=== PATIENT | male | born 1940 | race Caucasian/White ===

== ENCOUNTER 2016-12-01 21:05 | Inpatient (IN) | payer MEDICARE, OTHER ==
[~2016-12-01] VITALS: Ht 152.4 cm; Wt 45.1 kg
[~2016-12-01 21:05] MED LIST: ACET325 PO; BISA10R PR; DONE5TAB14 PO; NEUR100C PO; PRIL40CA PO; RISP.5 PO
[2016-12-01] MEDS ORDERED: SODIUM CHLOR 0.9% 1000 ML INJ 1,000 ML IV ONE (21:11)
[2016-12-01] MEDS ORDERED: AZITHROMYCIN INJ 500 MG in SODIUM CHLOR 0.9% 250 ML INJ 250 ML IV STA (21:11)
[2016-12-01] MEDS ORDERED: CEFEPIME INJ 2,000 MG in SODIUM CHLORIDE 0.9% INJ 100 ML IV STA (21:11)
[2016-12-01] MEDS ORDERED: ACETAMINOPHEN 650 MG SUPP RECTAL ONE (21:15)
[2016-12-01 21:48] VITALS: BP 130/72; PULSE 117; RESP 30; TEMP 101; O2SAT 95
[2016-12-01 22:19] LABS: AUTOMATED NEUTROPHIL # 20.6 TH/MM3 (1.8-7.7); BASOPHIL % 0.2 % (0.0-2.0); HEMATOCRIT 38.8 % (39.0-51.0); HEMO FLAGS DIFF FINAL; LYMPH % 2.2 % (9.0-44.0); LYMPHOCYTE # 0.5 TH/MM3 (1.0-4.8); MEAN CELL VOLUME 94.7 FL (80.0-100.0); MEAN CORPUSCULAR HEMOGLOBIN 31.9 PG (27.0-34.0); MEAN CORPUSCULAR HGB CONC 33.7 % (32.0-36.0); MONO % 8.2 % (0.0-8.0); NEUT % 89.4 % (16.0-70.0); PLATELET COUNT 300 TH/MM3 (150-450); RED CELL DISTRIBUTION WIDTH 14.7 % (11.6-17.2); WHITE BLOOD COUNT 23.1 TH/MM3 (4.0-11.0)
[2016-12-01 22:25] VITALS: BP 130/72; PULSE 123; RESP 26; O2SAT 97
--- NOTE | 2016-12-01 22:34 | RADRPT ---
EXAM DATE/TIME: 12/01/2016 21:26 [place] COMPARISON: CHEST SINGLE AP, July 10, 2015, 8:25. INDICATIONS : Fever. MEDICAL HISTORY : Alzheimers. Dementia. SURGICAL HISTORY : None. ENCOUNTER: Initial ACUITY: 1 day PAIN SCORE: Non-responsive. LOCATION: Bilateral chest FINDINGS: A single view of the chest demonstrates minimal basilar density probably atelectasis. No effusion. No pneumothorax. No dense consolidation. Tortuous aorta. CONCLUSION: 1. Minimal basilar atelectasis. No dense consolidation or effusion. Chris Friedman MD on December 01, 2016 at 22:31 Board Certified Radiologist. This report was verified electronically.
[2016-12-01 22:38] LABS: ALT (GPT) 12 U/L (12-78); ANION GAP 8 MEQ/L (5-15); AST (GOT) 11 U/L (15-37); BICARBONATE 26.9 MEQ/L (21.0-32.0); BLOOD UREA NITROGEN 13 MG/DL (7-18); CHLORIDE 108 MEQ/L (98-107); GLOMERULAR FILTRATION RATE 82 ML/MIN (>89); MAGNESIUM 1.8 MG/DL (1.5-2.5); POTASSIUM 4.1 MEQ/L (3.5-5.1); SODIUM (NA) 143 MEQ/L (136-145)
[2016-12-01] MEDS ORDERED: ACET1CAP18 PO (22:39)
[2016-12-01 22:40] LABS: BLOOD, URINE SMALL (NEG); GLUCOSE,URINE NEG (NEG); KETONE, URINE 10 mg/dL (NEG); MUCUS URINE FEW /lpf (OCC); NITRITE,URINE NEG (NEG); PH, URINE 6.5 (5.0-8.5); URINE COLOR YELLOW (YELLW/STRAW)
[2016-12-01] MEDS ORDERED: DONE10TA7 PO (22:40)
[2016-12-01] MEDS ORDERED: BISC10SU RECTAL (22:40)
[2016-12-01] MEDS ORDERED: RISP0.5T20 PO (22:40)
[2016-12-01] MEDS ORDERED: TRAZ50TA12 PO (22:40)
[2016-12-01] MEDS ORDERED: PRIL20CA9 PO (22:40)
[2016-12-01] MEDS ORDERED: ALBU.5I NEB (22:40)
[2016-12-01] MEDS ORDERED: GABA100C4 PO (22:40)
[2016-12-01 22:42] LABS: ALKALINE PHOSPHATASE 41 U/L (45-117); TOTAL BILIRUBIN ADULT 0.4 MG/DL (0.2-1.0)
[2016-12-01 22:47] LABS: COMMENT (UR) CATH-CULT NOT IND; CULTURE IF INDICATED CATH CULTURE NOT IND
[2016-12-01 22:55] LABS: APTT (PATIENT) 32.2 SEC (24.3-30.1); INTERNATIONAL NORMALIZED RATIO 1.2 RATIO; PROTHROMBIN TIME - PATIENT 12.9 SEC (9.8-11.6)
[2016-12-02] VITALS (9 sets, daily range): BP systolic 109–117; BP diastolic 60–75; PULSE 80–112; RESP 18–22; TEMP 95.7–99.2; O2SAT 91–96
[2016-12-02 00:09] LABS: LACTIC ACID GHOST NOT REPORTABLE
--- NOTE | 2016-12-02 00:15 | PD ---
HPI Chief Complaint: Fever Time Seen by Provider: 21:10 Travel History International Travel<30 days: No Contact w/Intl Traveler<30days: No Traveled to known affect area: No History of Present Illness HPI Patient is a 76 year old male who comes in with fever and AMS. Per EMS the staff at the group home called because he was no longer speaking with them. He was noted to be febrile. He had pneumonia recently, but had a chest XR that showed it had cleared up. Patient has history of cerebral Palsy, but usually is able to converse. He cannot provide history due to his clinical condition. He is not answering questions currently. PFSH Past Medical History Alzheimer's Disease: Yes Arthritis: Yes Anxiety: Yes Dementia: Yes Diminished Hearing: Yes GERD: Yes Medical other: Yes (contracture, cerebral palsy) Psychiatric: Yes (PSYCHOTIC DEMENTIA) Tetanus Vaccination: Unknown Past Surgical History Oral Surgery: Yes (teeth extracted) Social History Alcohol Use: No Tobacco Use: No Substance Use: No Allergies-Medications (Allergen,Severity, Reaction): Coded Allergies: No Known Allergies (Unverified , 07/03/15) Reported Meds & Prescriptions Reported Meds & Active Scripts Active Reported Trazodone (Trazodone HCl) 50 Mg Tab 50 Mg PO HS Risperdal (Risperidone) 0.5 Mg Tab 0.5 Mg PO Q12HR Prilosec (Omeprazole) 20 Mg Cap 20 Mg PO DAILY Gabapentin 100 Mg Cap 100 Mg PO BID Donepezil 10 Mg Tab 10 Mg PO HS Biscolax Supp (Bisacodyl) 10 Mg Supp 10 Mg RECTAL DAILY PRN Albuterol Neb (Albuterol Sulfate) 2.5 Mg/0.5 Ml Neb 2.5 Mg NEB Q6HR NEB PRN Note: The Albuterol Sulfate Inhalation Solution is concentrated and must be diluted. Read complete instructions carefully before using. Tylenol (Acetaminophen) 325 Mg Cap 650 Mg PO Q4HR PRN Review of Systems ROS Limitations: Clinical Condition Physical Exam Narrative GENERAL: awake and alert, not speaking SKIN: Warm and dry. HEAD: Atraumatic. Normocephalic. EYES: Pupils equal and round. No scleral icterus. ENT: Mucous membranes pink and moist. NECK: Trachea midline. No JVD. CARDIOVASCULAR: tachycardia RESPIRATORY: No accessory muscle use. Clear to auscultation. Breath sounds equal bilaterally. GASTROINTESTINAL: Abdomen soft, non-tender, nondistended. MUSCULOSKELETAL: Extremities contracted, without clubbing, cyanosis, or edema. No obvious deformities. NEUROLOGICAL: Awake and alert, not speaking. No obvious cranial nerve deficits. Data Data Last Documented VS Vital Signs Date Time Temp Pulse Resp B/P Pulse Ox O2 Delivery O2 Flow Rate FiO2 12/01/16 22:25 123 26 130/72 97 Nasal Cannula 2 12/01/16 21:48 101.0 Orders Electrocardiogram (12/01/16 21:11) Complete Blood Count With Diff (12/01/16 21:11) Comprehensive Metabolic Panel (12/01/16 21:11) Prothrombin Time / Inr (Pt) (12/01/16 21:11) Act Partial Throm Time (Ptt) (12/01/16 21:11) Lactic Acid Sepsis Protocol (12/01/16 21:11) Magnesium (Mg) (12/01/16 21:11) Phosphorus (Po4) (12/01/16 21:11) Troponin I (12/01/16 21:11) Urinalysis - C+S If Indicated (12/01/16 21:11) Ua Includes Microscopic (12/01/16 21:11) Blood Culture (12/01/16 21:11) Chest, Single Ap (12/01/16 21:11) Blood Glucose (12/01/16 21:11) Ecg Monitoring (12/01/16 21:11) Iv Access Insert/Monitor (12/01/16 21:11) Oximetry (12/01/16 21:11) Oxygen Administration (12/01/16 21:11) Cefepime Inj (Maxipime Inj) (12/01/16 21:11) Azithromycin Inj (Zithromax Inj) (12/01/16 21:11) Acetaminophen Supp (Tylenol Supp) (12/01/16 21:15) Sodium Chlor 0.9% 1000 Ml Inj (Ns 1000 M (12/01/16 21:11) Cath For Specimen (12/01/16 21:11) Influenzae A/B Antigen (12/01/16 21:45) Admit To Inpatient (12/02/16 ) Vital Signs (Adult) Q4H (12/02/16 00:30) Activity Bed Rest (12/02/16 00:30) Foot Orthopedist / Telemetry .CONTINUOUS (12/02/16 00:30) Diet Npo (12/02/16 Breakfast) Sodium Chlor 0.9% 1000 Ml Inj (Ns 1000 M (12/02/16 00:30) Sodium Chloride 0.9% Flush (Ns Flush) (12/02/16 00:30) Sodium Chloride 0.9% Flush (Ns Flush) (12/02/16 09:00) Acetaminophen (Tylenol) (12/02/16 00:30) Ondansetron Inj (Zofran Inj) (12/02/16 00:30) Bisacodyl Supp (Dulcolax Supp) (12/02/16 00:30) Magnesium Hydroxide Liq (Milk Of Magnesi (12/02/16 00:30) Sennosides (Senokot) (12/02/16 00:30) Comprehensive Metabolic Panel (12/03/16 06:00) Complete Blood Count With Diff (12/03/16 06:00) Resp Oxygen Renato C Titrat 1-4 L (12/02/16 ) Heparin Inj (Heparin Inj) (12/02/16 09:00) Naloxone Inj (Narcan Inj) (12/02/16 00:30) Inpatient Certification (12/02/16 ) Cefepime Inj (Maxipime Inj) (12/02/16 06:00) Azithromycin Inj (Zithromax Inj) (12/02/16 22:00) Admit Order (Ed Use Only) (12/02/16 ) Labs Laboratory Tests Test 12/01/16 12/01/16 21:25 21:30 White Blood Count 23.1 TH/MM3 Red Blood Count 4.10 MIL/MM3 Hemoglobin 13.1 GM/DL Hematocrit 38.8 % Mean Corpuscular Volume 94.7 FL Mean Corpuscular Hemoglobin 31.9 PG Mean Corpuscular Hemoglobin 33.7 % Concent Red Cell Distribution Width 14.7 % Platelet Count 300 TH/MM3 Mean Platelet Volume 8.4 FL Neutrophils (%) (Auto) 89.4 % Lymphocytes (%) (Auto) 2.2 % Monocytes (%) (Auto) 8.2 % Eosinophils (%) (Auto) 0.0 % Basophils (%) (Auto) 0.2 % Neutrophils # (Auto) 20.6 TH/MM3 Lymphocytes # (Auto) 0.5 TH/MM3 Monocytes # (Auto) 1.9 TH/MM3 Eosinophils # (Auto) 0.0 TH/MM3 Basophils # (Auto) 0.0 TH/MM3 CBC Comment DIFF FINAL Differential Comment Prothrombin Time 12.9 SEC Prothromb Time International 1.2 RATIO Ratio Activated Partial 32.2 SEC Thromboplast Time Sodium Level 143 MEQ/L Potassium Level 4.1 MEQ/L Chloride Level 108 MEQ/L Carbon Dioxide Level 26.9 MEQ/L Anion Gap 8 MEQ/L Blood Urea Nitrogen 13 MG/DL Creatinine 0.90 MG/DL Estimat Glomerular Filtration 82 ML/MIN Rate Random Glucose 125 MG/DL Calcium Level 8.0 MG/DL Phosphorus Level 2.3 MG/DL Magnesium Level 1.8 MG/DL Total Bilirubin 0.4 MG/DL Aspartate Amino Transf 11 U/L (AST/SGOT) Alanine Aminotransferase 12 U/L (ALT/SGPT) Alkaline Phosphatase 41 U/L Troponin I LESS THAN 0.02 NG/ML Total Protein 6.3 GM/DL Albumin 2.7 GM/DL Urine Color YELLOW Urine Turbidity HAZY Urine pH 6.5 Urine Specific [place] 1.018 Urine Protein 30 mg/dL Urine Glucose (UA) NEG mg/dL Urine Ketones 10 mg/dL Urine Occult Blood SMALL Urine Nitrite NEG Urine Bilirubin NEG Urine Urobilinogen LESS THAN 2.0 MG/DL Urine Leukocyte Esterase LARGE Urine RBC 10 /hpf Urine WBC 109 /hpf Urine WBC Clumps RARE Urine Mucus FEW /lpf Microscopic Urinalysis Comment CATH-CULT NOT IND Lactic Acid Level 2.1 mmol/L MDM Medical Decision Making Medical Screen Exam Complete: Yes Emergency Medical Condition: Yes Medical Record Reviewed: Yes Interpretation(s) ECG shows sinus tachycardia Differential Diagnosis sepsis vs pneumonia vs UTI vs CVA Narrative Course Patient is a 76 year old male BIBEMS for AMS with fever. Patient febrile and tachycardic on arrival. IV established, labs sent. Patient given IVF, 2L Given Cefepime and Azithromycin prophylactically for possible pneumonia Labs show elevated WBC count. CXR negative for pneumonia Urinalysis positive for UTI. Patient's BP remained within normal limits. Admitted for further management. Patient's sister arrived and said he seemed to be responding appropriately to her. She says he is very hard of hearing. Diagnosis Primary Impression: Sepsis Qualified Code: A41.9 - Sepsis, due to unspecified organism Additional Impression: UTI (urinary tract infection) Qualified Code: N30.00 - Acute cystitis without hematuria Admitting Information Admitting Physician Requests: it Britany Shaw MD Dec 02, 2016 00:15
[2016-12-02] MEDS ORDERED: MAGNESIUM HYDROXIDE SUSP 30 ML CUP PO PRN (00:30)
[2016-12-02] MEDS ORDERED: NALOXONE HCL 0.4 MG/ML AMP IV PRN (00:30)
[2016-12-02] MEDS ORDERED: ACETAMINOPHEN 325 MG TAB PO PRN ×2 (00:30→10:00)
[2016-12-02] MEDS ORDERED: ONDANSETRON HCL 4 MG/2 ML VIAL IVP PRN (00:30)
[2016-12-02] MEDS ORDERED: SENNOSIDES 8.6 MG TAB PO PRN (00:30)
[2016-12-02] MEDS ORDERED: BISACODYL 10 MG SUPP PR PRN (00:30)
[2016-12-02] MEDS ORDERED: SODIUM CHLORIDE 0.9% FLUSH 5 ML FLUSH FLUSH PRN (00:30)
[2016-12-02] MEDS: FAMOTIDINE 20 MG/2 ML VIAL IV PUSH SCH ×2 (03:42→13:12)
[2016-12-02] MEDS: SODIUM CHLOR 0.9% 1000 ML INJ 1,000 ML IV SCH (05:27)
[2016-12-02] MEDS: CEFEPIME INJ 1,000 MG in SODIUM CHLORIDE 0.9% INJ 100 ML IV SCH ×2 (05:37→13:12)
--- NOTE | 2016-12-02 06:53 | MH ---
cc: CHANDAN FOX DATE OF ADMISSION: 12/02/[address] Darius Olmedo CHIEF COMPLAINT: Altered mental status. HISTORY OF PRESENT ILLNESS: The patient is a 76 year-old male from a local nursing facility. The patient has some underlying history of Alzheimer's dementia and cerebral palsy. The patient is essentially obtunded at this time and cannot provide any meaningful history. The history is obtained from the ER staff. The patient apparently is more responsive at baseline and became less responsive today. He was sent to the emergency room and was found to have early sepsis and urinary tract infection. He is being admitted for further care. MEDICATIONS ON ADMISSION: Noted in the chart. ALLERGIES: NONE. PAST MEDICAL HISTORY: Obtained from the chart includes: 1. Dementia. 2. Anxiety. 3. Hard of hearing. 4. GERD. 5. Cerebral palsy. PAST SURGICAL HISTORY: Oral surgery. SOCIAL HISTORY: No recorded history of alcohol, tobacco or drug use. Currently resides in a nursing facility. FAMILY HISTORY: Noncontributory. Unobtainable at this time. REVIEW OF SYSTEMS: Unobtainable. PHYSICAL EXAMINATION: VITAL SIGNS: Temperature 101 rectally. Heart rate on the monitor, currently is 89 to 100. Heart rate was recorded at 117 when he first came in, respiratory rate 30. Last respirations noted to be at 26, blood pressure 130/72. O2 sat is 97% on two liters nasal cannula. GENERAL: This is a 76 year-old male lying on his left side, sleeping in no acute distress. HEENT: No jaundice. Moist mucous membranes. NECK: Supple. CARDIOVASCULAR: Regular rate and rhythm. RESPIRATORY: Scattered coarse breath sounds are heard bilaterally. GASTROINTESTINAL: Bowel sounds are present. ABDOMEN: Not distended. There is no guarding or rebound. GENITOURINARY: Bladder does not appear to be distended. No CVA tenderness. MUSCULOSKELETAL: No edema. LOWER EXTREMITIES: Appear to be contracted. NEUROLOGIC: The patient does respond to moderate tactile stimulus with some withdrawing, otherwise neuro exam is essentially unobtainable. INVESTIGATIONS: Chest x-ray, minimal basilar atelectasis. No dense consolidation or effusion. INR is 1.2. White count is 23, hemoglobin 13.1, hematocrit 38.8, platelet count 300. Neutrophils are 89.4. Lactic acid is 2.1. BUN is 13, creatinine 0.9, glucose 125, calcium 8, phosphorus 2.3. Troponin was negative. Albumin 2.7, total protein 6.3. Urinalysis is consistent with urinary tract infection. IMPRESSION: 1. Sepsis on admission. 2. Urinary tract infection. 3. Protein calorie malnutrition. 4. Dementia. 5. Cerebral palsy. 6. Underlying dementia. 7. Hard of hearing. DISCUSSION: The patient meets inpatient criteria due to the severity of his sepsis and urinary tract infection, without which he would be at a high risk for multisystem organ failure. He would be at a high-risk of developing other complications as well. During his hospital stay he will be monitored on telemetry. He has received two liters of fluid and a third liter is ordered. Will repeat lactic acid. He has been covered with broad-spectrum antibiotics. The ER physician did report that he has recently been treated for pneumonia. He still has some coarse breath sounds. Will keep him n.p.o. until he is seen by speech therapy. We will provide DVT and GI prophylaxis. Follow up his labs. Monitor and replace electrolytes as needed. Further recommendations as the case progresses. Anticipate length of stay is 4 to 5 days. Anticipated discharge is back to the detention facility. Dictated by: Avelino Amado PA-C Chandan Fox MD JP/MANSI /12:49 AM /6:40 AM Pt seen and examined as above on day of admission ( face to face time spent with pt ) chart was reviewd labs and rad data reviewed meds reviewed notes reviewed dw pt dw rn TATE
[2016-12-02] MEDS: SODIUM CHLORIDE 0.9% FLUSH 5 ML FLUSH FLUSH SCH ×2 (08:42→23:44)
[2016-12-02] MEDS: HEPARIN SODIUM - SQ 10,000 UNITS/ML VIAL SQ SCH ×2 (08:43→22:40)
--- NOTE | 2016-12-02 09:19 | HHI.PR ---
Objective Objective Results - Vital Signs Date Time Temp Pulse Resp B/P Pulse Ox O2 Delivery O2 Flow Rate FiO2 12/02/16 08:29 94 21 12/02/16 06:16 99.1 112 22 115/70 95 12/02/16 02:40 99.1 112 20 115/70 95 12/02/16 02:17 99.2 105 16 117/72 96 12/01/16 22:25 123 26 130/72 97 Nasal Cannula 2 12/01/16 22:23 95 Nasal Cannula 2 12/01/16 21:48 101.0 117 30 130/72 95 Result Diagram: 12/01/16212412/01/162124 Other Results Laboratory Tests Test 12/01/16 12/01/16 12/02/16 12/02/16 21:25 21:30 01:30 06:25 White Blood Count 23.1 Red Blood Count 4.10 Hemoglobin 13.1 Hematocrit 38.8 Mean Corpuscular Volume 94.7 Mean Corpuscular Hemoglobin 31.9 Mean Corpuscular Hemoglobin 33.7 Concent Red Cell Distribution Width 14.7 Platelet Count 300 Mean Platelet Volume 8.4 Neutrophils (%) (Auto) 89.4 Lymphocytes (%) (Auto) 2.2 Monocytes (%) (Auto) 8.2 Eosinophils (%) (Auto) 0.0 Basophils (%) (Auto) 0.2 Neutrophils # (Auto) 20.6 Lymphocytes # (Auto) 0.5 Monocytes # (Auto) 1.9 Eosinophils # (Auto) 0.0 Basophils # (Auto) 0.0 CBC Comment DIFF FINAL Differential Comment Prothrombin Time 12.9 Prothromb Time International 1.2 Ratio Activated Partial 32.2 Thromboplast Time Sodium Level 143 Potassium Level 4.1 Chloride Level 108 Carbon Dioxide Level 26.9 Anion Gap 8 Blood Urea Nitrogen 13 Creatinine 0.90 Estimat Glomerular Filtration 82 Rate Random Glucose 125 Calcium Level 8.0 Phosphorus Level 2.3 Magnesium Level 1.8 2.0 Total Bilirubin 0.4 Aspartate Amino Transf 11 (AST/SGOT) Alanine Aminotransferase 12 (ALT/SGPT) Alkaline Phosphatase 41 Troponin I LESS THAN 0.02 Total Protein 6.3 Albumin 2.7 Urine Color YELLOW Urine Turbidity HAZY Urine pH 6.5 Urine Specific [place] 1.018 Urine Protein 30 Urine Glucose (UA) NEG Urine Ketones 10 Urine Occult Blood SMALL Urine Nitrite NEG Urine Bilirubin NEG Urine Urobilinogen LESS THAN 2.0 Urine Leukocyte Esterase LARGE Urine RBC 10 Urine WBC 109 Urine WBC Clumps RARE Urine Mucus FEW Microscopic Urinalysis Comment CATH-CULT NOT IND Lactic Acid Level 2.1 1.6 Date/Time Procedure Status Source Growth 12/01/16 21:50 Influenza Types A,B Antigen (CALEB) - Final Complete Nasal Washing NEGATIVE FOR FLU A AND B ANTIGEN.... 12/01/16 21:30 Aerobic Blood Culture Resulted Blood Peripheral Pending 12/01/16 21:30 Anaerobic Blood Culture - Final Resulted Blood Peripheral QNS - SEE AEROBE REPORT A/P Assessment and Plan Patient seen and examined in detail Chart reviewed Meds labs radical data and notes reviewed Agree with plan of care by PA Discussed with RN Labs for today and tomorrow [id number] time spent with patient Condition guarded Prognosis guarded Andreas Rinaldi MD Dec 02, 2016 09:19
[2016-12-02] MEDS ORDERED: SODIUM PHOSPHATE INJ 15 MMOL in SODIUM CHLORIDE 0.9% INJ 150 ML IV ONE (10:00)
[2016-12-02] MEDS ORDERED: RESP: ALBUTEROL CONC 2.5 MG/0.5 ML NEB NEB PRN (10:00)
[2016-12-02] MEDS ORDERED: BISACODYL 10 MG SUPP RECTAL PRN (10:00)
[2016-12-02] MEDS: PANTOPRAZOLE SOD 20 MG DELAYED RELEASE TAB PO SCH (10:17)
[2016-12-02] MEDS: risperiDONE 0.5 MG TAB PO SCH ×2 (10:17→22:39)
[2016-12-02 11:49] LABS: HEMATOCRIT 36.7 % (39.0-51.0); MEAN CELL VOLUME 94.5 FL (80.0-100.0); MEAN CORPUSCULAR HEMOGLOBIN 31.5 PG (27.0-34.0); MEAN CORPUSCULAR HGB CONC 33.3 % (32.0-36.0); PLATELET COUNT 268 TH/MM3 (150-450); RED BLOOD COUNT 3.88 MIL/MM3 (4.50-5.90); RED CELL DISTRIBUTION WIDTH 14.4 % (11.6-17.2); REVIEW FLAG FINAL; WHITE BLOOD COUNT 21.2 TH/MM3 (4.0-11.0)
--- NOTE | 2016-12-02 13:01 | EKG ---
Date Performed: 12/01/2016 Time Performed: 22:03:08 PTAGE: 76 years EKG: SINUS TACHYCARDIA LOW QRS VOLTAGE IN EXTREMITY LEADS INCOMPLETE RIGHT BUNDLE BRANCH BLOCK M INIMAL VOLTAGE CRITERIA FOR LVH, CONSIDER NORMAL VARIANT Compared to prior tracing no significant chantel nge ABNORMAL RHYTHM ECG PREVIOUS TRACING : 07/04/2015 11.40 DOCTOR: Simone Echevarria Interpretating Date/Time 12/02/2016 12:56:49
[2016-12-02] MEDS: DONEPEZIL HCL 5 MG TAB PO SCH (22:39)
[2016-12-02] MEDS: GABAPENTIN 100 MG CAP PO SCH (22:39)
[2016-12-02] MEDS: traZODone HCL 50 MG TAB PO SCH (22:39)
[2016-12-02] MEDS ORDERED: LORazepam 2 MG/ML VIAL IVS PRN (23:45)
[2016-12-03] VITALS (10 sets, daily range): BP systolic 109–137; BP diastolic 53–83; PULSE 75–90; RESP 16–20; TEMP 96–100; O2SAT 90–96
[2016-12-03] MEDS: AZITHROMYCIN INJ 500 MG in SODIUM CHLOR 0.9% 250 ML INJ 250 ML IV SCH ×2 (00:10→00:12)
[2016-12-03] MEDS: FAMOTIDINE 20 MG/2 ML VIAL IV PUSH SCH ×2 (02:19→13:58)
[2016-12-03] MEDS: CEFEPIME INJ 1,000 MG in SODIUM CHLORIDE 0.9% INJ 100 ML IV SCH ×4 (02:19→22:16)
[2016-12-03] MEDS: SODIUM CHLOR 0.9% 1000 ML INJ 1,000 ML IV SCH ×3 (06:31→16:30)
[2016-12-03 06:49] LABS: AUTOMATED NEUTROPHIL # 10.1 TH/MM3 (1.8-7.7); BASOPHIL % 0.2 % (0.0-2.0); EOSINOPHIL # 0.2 TH/MM3 (0-0.4); EOSINOPHIL % 1.5 % (0.0-4.0); HEMATOCRIT 36.8 % (39.0-51.0); HEMO FLAGS DIFF FINAL; LYMPH % 7.5 % (9.0-44.0); LYMPHOCYTE # 0.9 TH/MM3 (1.0-4.8); MEAN CELL VOLUME 94.9 FL (80.0-100.0); MEAN CORPUSCULAR HEMOGLOBIN 30.9 PG (27.0-34.0); MEAN CORPUSCULAR HGB CONC 32.6 % (32.0-36.0); MONO % 7.2 % (0.0-8.0); NEUT % 83.6 % (16.0-70.0); PLATELET COUNT 271 TH/MM3 (150-450); RED BLOOD COUNT 3.87 MIL/MM3 (4.50-5.90); RED CELL DISTRIBUTION WIDTH 14.3 % (11.6-17.2); WHITE BLOOD COUNT 12.1 TH/MM3 (4.0-11.0)
[2016-12-03 07:26] LABS: ALKALINE PHOSPHATASE 42 U/L (45-117); ALT (GPT) 11 U/L (12-78); ANION GAP 9 MEQ/L (5-15); AST (GOT) 10 U/L (15-37); BLOOD UREA NITROGEN 10 MG/DL (7-18); CHLORIDE 109 MEQ/L (98-107); GLOMERULAR FILTRATION RATE 149 ML/MIN (>89); MAGNESIUM 2.1 MG/DL (1.5-2.5); POTASSIUM 3.2 MEQ/L (3.5-5.1); SODIUM (NA) 142 MEQ/L (136-145); TOTAL BILIRUBIN ADULT 0.5 MG/DL (0.2-1.0)
[2016-12-03] MEDS: GABAPENTIN 100 MG CAP PO SCH ×2 (08:08→21:00)
[2016-12-03] MEDS: HEPARIN SODIUM - SQ 10,000 UNITS/ML VIAL SQ SCH ×2 (08:08→21:00)
[2016-12-03] MEDS: risperiDONE 0.5 MG TAB PO SCH ×2 (08:08→21:00)
[2016-12-03] MEDS: PANTOPRAZOLE SOD 20 MG DELAYED RELEASE TAB PO SCH (08:08)
[2016-12-03] MEDS: SODIUM CHLORIDE 0.9% FLUSH 5 ML FLUSH FLUSH SCH ×2 (08:09→21:00)
--- NOTE | 2016-12-03 09:53 | HHI.PR ---
Subjective Remarks Patient is alert pleasant occasionally following commands Try to water one to 2 words very difficult to understand Not in any apparent distress As per RN had a bowel movement yesterday Had some agitation last night Unable to get review of system Objective Objective Results - Vital Signs Date Time Temp Pulse Resp B/P Pulse Ox O2 Delivery O2 Flow Rate FiO2 12/03/16 08:00 96.0 90 112/65 94 12/03/16 04:00 97.4 83 16 137/79 90 12/03/16 02:27 75 12/03/16 00:01 100.0 89 16 116/67 96 12/03/16 00:01 97.8 87 18 114/71 92 12/02/16 19:52 97.5 80 18 116/75 96 12/02/16 16:00 97.2 83 18 111/69 92 12/02/16 12:00 95.7 82 18 109/60 94 I/O 12/02/16 12/02/16 12/02/16 12/03/16 12/03/16 12/03/16 07:00 15:00 23:00 07:00 15:00 23:00 Intake Total 808 ml 1027 ml Balance 808 ml 1027 ml Intake Oral 240 ml 30 ml IV Total 568 ml 997 ml # Voids 5 3 # Bowel Movements 1 1 Result Diagram: 12/03/16 0532 12/03/16 0532 Other Results Laboratory Tests Test 12/02/16 12/03/16 10:48 05:32 White Blood Count 21.2 12.1 Red Blood Count 3.88 3.87 Hemoglobin 12.2 12.0 Hematocrit 36.7 36.8 Mean Corpuscular Volume 94.5 94.9 Mean Corpuscular Hemoglobin 31.5 30.9 Mean Corpuscular Hemoglobin 33.3 32.6 Concent Red Cell Distribution Width 14.4 14.3 Platelet Count 268 271 Mean Platelet Volume 8.4 8.4 Neutrophils (%) (Auto) 83.6 Lymphocytes (%) (Auto) 7.5 Monocytes (%) (Auto) 7.2 Eosinophils (%) (Auto) 1.5 Basophils (%) (Auto) 0.2 Neutrophils # (Auto) 10.1 Lymphocytes # (Auto) 0.9 Monocytes # (Auto) 0.9 Eosinophils # (Auto) 0.2 Basophils # (Auto) 0.0 CBC Comment DIFF FINAL Differential Comment Sodium Level 142 Potassium Level 3.2 Chloride Level 109 Carbon Dioxide Level 24.0 Anion Gap 9 Blood Urea Nitrogen 10 Creatinine 0.54 Estimat Glomerular Filtration 149 Rate Random Glucose 82 Calcium Level 7.8 Phosphorus Level 1.7 Magnesium Level 2.1 Total Bilirubin 0.5 Aspartate Amino Transf 10 (AST/SGOT) Alanine Aminotransferase 11 (ALT/SGPT) Alkaline Phosphatase 42 Total Protein 5.8 Albumin 2.3 Date/Time Procedure Status Source Growth 12/01/16 21:50 Influenza Types A,B Antigen (CALEB) - Final Complete Nasal Washing NEGATIVE FOR FLU A AND B ANTIGEN.... 12/01/16 21:30 Aerobic Blood Culture - Preliminary Resulted Blood Peripheral NO GROWTH IN 1 DAY 12/01/16 21:30 Anaerobic Blood Culture - Final Resulted Blood Peripheral QNS - SEE AEROBE REPORT Physical Exam Physical Exam VITAL SIGNS: Reviewed GENERAL: This is a 76 year-old male lying on bed in no acute distress. HEENT: No jaundice. Moist mucous membranes. NECK: Supple. CARDIOVASCULAR: Regular rate and rhythm. RESPIRATORY: coarse breath sounds are heard bilaterally. GASTROINTESTINAL: Bowel sounds are present. ABDOMEN: Not distended. There is no guarding or rebound. GENITOURINARY: Bladder does not appear to be distended. No CVA tenderness. MUSCULOSKELETAL: No edema. LOWER EXTREMITIES: Appear to be contracted. NEUROLOGIC: The patient does respond to moderate tactile stimulus with some withdrawing, otherwise neuro exam is essentially unobtainable. A/P Assessment and Plan 1. Sepsis on admission. 2. Urinary tract infection. 3. Protein calorie malnutrition. 4. Dementia. 5. Cerebral palsy. 6. Underlying dementia. 7. Hard of hearing. DISCUSSION: Telemetry reviewed. Patient has difficult time to keep telemetry plan to DC telemetry. When necessary oxygen to keep oxygen saturation above 90% Labs reviewed Low potassium replace Low phosphorous will replace Improving WBC count significantly Hemoglobin is stable Lactic acid within normal limits Continue antibiotic Continue home medication as indicated DVT and GI prophylaxis. Repeat labs tomorrow Physical therapy Further recommendations as the case progresses. Anticipated discharge is back to the [facility] facility. Discussed with Andreas Parekh MD Dec 03, 2016 09:53
[2016-12-03] MEDS ORDERED: POTASSIUM CHLORIDE 20 MEQ CONTROLLED RELEASE TAB PO ONE (10:00)
[2016-12-03] MEDS ORDERED: SODIUM PHOSPHATE INJ 30 MMOL in SODIUM CHLOR 0.9% 250 ML INJ 250 ML IV ONE (11:00)
[2016-12-03] MEDS: traZODone HCL 50 MG TAB PO SCH (21:00)
[2016-12-03] MEDS: DONEPEZIL HCL 5 MG TAB PO SCH (21:00)
[2016-12-04] VITALS (9 sets, daily range): BP systolic 107–139; BP diastolic 44–84; PULSE 53–94; RESP 17–20; TEMP 96–97.9; O2SAT 92–96
[2016-12-04] MEDS: AZITHROMYCIN INJ 500 MG in SODIUM CHLOR 0.9% 250 ML INJ 250 ML IV SCH ×2 (00:10→23:33)
[2016-12-04] MEDS: FAMOTIDINE 20 MG/2 ML VIAL IV PUSH SCH ×2 (00:20→14:24)
[2016-12-04] MEDS: SODIUM CHLOR 0.9% 1000 ML INJ 1,000 ML IV SCH ×2 (03:14→14:24)
[2016-12-04] MEDS: CEFEPIME INJ 1,000 MG in SODIUM CHLORIDE 0.9% INJ 100 ML IV SCH ×3 (06:21→21:57)
[2016-12-04 06:53] LABS: HEMATOCRIT 36.4 % (39.0-51.0); MEAN CELL VOLUME 94.9 FL (80.0-100.0); MEAN CORPUSCULAR HEMOGLOBIN 32.3 PG (27.0-34.0); PLATELET COUNT 344 TH/MM3 (150-450); RED BLOOD COUNT 3.84 MIL/MM3 (4.50-5.90); RED CELL DISTRIBUTION WIDTH 14.6 % (11.6-17.2); REVIEW FLAG FINAL; WHITE BLOOD COUNT 7.3 TH/MM3 (4.0-11.0)
[2016-12-04 07:26] LABS: BICARBONATE 24.8 MEQ/L (21.0-32.0); POTASSIUM 3.9 MEQ/L (3.5-5.1)
[2016-12-04] MEDS: SODIUM CHLORIDE 0.9% FLUSH 5 ML FLUSH FLUSH SCH ×2 (09:00→21:00)
[2016-12-04] MEDS: GABAPENTIN 100 MG CAP PO SCH ×2 (09:41→21:00)
[2016-12-04] MEDS: HEPARIN SODIUM - SQ 10,000 UNITS/ML VIAL SQ SCH ×2 (09:41→21:00)
[2016-12-04] MEDS: PANTOPRAZOLE SOD 20 MG DELAYED RELEASE TAB PO SCH (09:41)
[2016-12-04] MEDS: risperiDONE 0.5 MG TAB PO SCH ×2 (09:41→21:58)
--- NOTE | 2016-12-04 14:55 | HHI.PR ---
Subjective Remarks Patient is alert pleasant occasionally following commands Try to water one to 2 words very difficult to understand Not in any apparent distress As per RN had a bowel movement yesterday Had some agitation last night Unable to get review of system Objective Objective Results - Vital Signs Date Time Temp Pulse Resp B/P Pulse Ox O2 Delivery O2 Flow Rate FiO2 12/04/16 13:06 94 21 12/04/16 08:00 97.9 65 18 121/70 96 12/04/16 04:00 97.7 94 18 130/70 92 12/04/16 00:00 94 17 128/68 12/03/16 20:00 98.1 76 18 115/53 92 12/03/16 17:26 95 21 12/03/16 16:00 97.9 90 20 116/83 95 I/O 12/03/16 12/03/16 12/03/16 12/04/16 12/04/16 12/04/16 07:00 15:00 23:00 07:00 15:00 23:00 Intake Total 1027 ml 480 ml 240 ml Balance 1027 ml 480 ml 240 ml Intake Oral 30 ml 480 ml 240 ml IV Total 997 ml # Voids 3 2 1 4 # Bowel Movements 1 1 1 2 Result Diagram: 12/04/16 0558 12/04/16 0558 Other Results Laboratory Tests Test 12/04/16 05:58 White Blood Count 7.3 Red Blood Count 3.84 Hemoglobin 12.4 Hematocrit 36.4 Mean Corpuscular Volume 94.9 Mean Corpuscular Hemoglobin 32.3 Mean Corpuscular Hemoglobin 34.0 Concent Red Cell Distribution Width 14.6 Platelet Count 344 Mean Platelet Volume 8.0 Sodium Level 144 Potassium Level 3.9 Chloride Level 109 Carbon Dioxide Level 24.8 Anion Gap 10 Blood Urea Nitrogen 6 Creatinine 0.72 Estimat Glomerular Filtration 107 Rate Random Glucose 95 Calcium Level 8.2 Phosphorus Level 2.3 Date/Time Procedure Status Source Growth 12/01/16 21:50 Influenza Types A,B Antigen (CALEB) - Final Complete Nasal Washing NEGATIVE FOR FLU A AND B ANTIGEN.... 12/01/16 21:30 Aerobic Blood Culture - Preliminary Resulted Blood Peripheral NO GROWTH IN 3 DAYS 12/01/16 21:30 Anaerobic Blood Culture - Final Resulted Blood Peripheral QNS - SEE AEROBE REPORT Physical Exam Physical Exam VITAL SIGNS: Reviewed GENERAL: This is a 76 year-old male lying on bed in no acute distress. HEENT: No jaundice. Moist mucous membranes. NECK: Supple. CARDIOVASCULAR: Regular rate and rhythm. RESPIRATORY: coarse breath sounds are heard bilaterally. GASTROINTESTINAL: Bowel sounds are present. ABDOMEN: Not distended. There is no guarding or rebound. GENITOURINARY: Bladder does not appear to be distended. No CVA tenderness. MUSCULOSKELETAL: No edema. LOWER EXTREMITIES: Appear to be contracted. NEUROLOGIC: The patient does respond to moderate tactile stimulus with some withdrawing, otherwise neuro exam is essentially unobtainable. A/P Assessment and Plan 1. Sepsis on admission. 2. Urinary tract infection. 3. Protein calorie malnutrition. 4. Dementia. 5. Cerebral palsy. 6. Underlying dementia. 7. Hard of hearing. DISCUSSION: When necessary oxygen to keep oxygen saturation above 90% Labs reviewed Low potassium better Stable H&H Low phosphorous better Improving WBC better Lactic acid within normal limits antibiotic Continue home medication as indicated DVT and GI prophylaxis. Repeat labs tomorrow Physical therapy Plan for DC today Discussed with bilingual case manager about DC planning Discussed with Andreas Parekh MD Dec 04, 2016 14:54
[2016-12-04] MEDS ORDERED: CEFT500T3 PO (14:57)
[2016-12-04] MEDS ORDERED: DOXY100C PO (14:57)
--- NOTE | 2016-12-04 18:16 | HHI.DS ---
Discharge Summary Admission Date Dec 02, 2016 at 00:50 Discharge Date: Dec 04, 2016 Admitting Diagnosis UTI, sepsis Brief History The patient was a 76 year-old male from a local nursing facility. The patient had some underlying history of Alzheimer's dementia and cerebral palsy. The patient was essentially obtunded at this time and cannot provide any meaningful history. The history was obtained from the ER staff. The patient apparently was more responsive at baseline and became less responsive on admission. He was sent to the emergency room and was found to have early sepsis and urinary tract infection. He is being admitted for further care. CBC/BMP: 12/04/16 0558 12/04/16 0558 Significant Findings Laboratory Tests Test 12/01/16 12/01/16 12/02/16 12/03/16 21:25 21:30 10:48 05:32 White Blood Count 23.1 TH/MM3 21.2 TH/MM3 12.1 TH/MM3 (4.0-11.0) (4.0-11.0) (4.0-11.0) Red Blood Count 4.10 MIL/MM3 3.88 MIL/MM3 3.87 MIL/MM3 (4.50-5.90) (4.50-5.90) (4.50-5.90) Hematocrit 38.8 % 36.7 % 36.8 % (39.0-51.0) (39.0-51.0) (39.0-51.0) Neutrophils (%) (Auto) 89.4 % 83.6 % (16.0-70.0) (16.0-70.0) Lymphocytes (%) (Auto) 2.2 % 7.5 % (9.0-44.0) (9.0-44.0) Monocytes (%) (Auto) 8.2 % (0.0-8.0) Neutrophils # (Auto) 20.6 TH/MM3 10.1 TH/MM3 (1.8-7.7) (1.8-7.7) Lymphocytes # (Auto) 0.5 TH/MM3 0.9 TH/MM3 (1.0-4.8) (1.0-4.8) Monocytes # (Auto) 1.9 TH/MM3 (0-0.9) Prothrombin Time 12.9 SEC (9.8-11.6) Activated Partial 32.2 SEC Thromboplast Time (24.3-30.1) Chloride Level 108 MEQ/L 109 MEQ/L (98-107) (98-107) Estimat Glomerular Filtration 82 ML/MIN (>89) Rate Random Glucose 125 MG/DL (74-106) Calcium Level 8.0 MG/DL 7.8 MG/DL (8.5-10.1) (8.5-10.1) Phosphorus Level 2.3 MG/DL 1.7 MG/DL (2.5-4.9) (2.5-4.9) Aspartate Amino Transf 11 U/L (15-37) 10 U/L (15-37) (AST/SGOT) Alkaline Phosphatase 41 U/L (45-117) 42 U/L (45-117) Troponin I LESS THAN 0.02 NG/ML (0.02-0.05) Total Protein 6.3 GM/DL 5.8 GM/DL (6.4-8.2) (6.4-8.2) Albumin 2.7 GM/DL 2.3 GM/DL (3.4-5.0) (3.4-5.0) Urine Turbidity HAZY (CLEAR) Urine Protein 30 mg/dL (NEG-TRACE) Urine Ketones 10 mg/dL (NEG) Urine Occult Blood SMALL (NEG) Urine Leukocyte Esterase LARGE (NEG) Urine RBC 10 /hpf (0-3) Urine WBC 109 /hpf (0-5) Urine WBC Clumps RARE (NONE) Urine Mucus FEW /lpf (OCC) Lactic Acid Level 2.1 mmol/L (0.4-2.0) Hemoglobin 12.2 GM/DL 12.0 GM/DL (13.0-17.0) (13.0-17.0) Potassium Level 3.2 MEQ/L (3.5-5.1) Creatinine 0.54 MG/DL (0.60-1.30) Alanine Aminotransferase 11 U/L (12-78) (ALT/SGPT) Test 12/04/16 05:58 Red Blood Count 3.84 MIL/MM3 (4.50-5.90) Hemoglobin 12.4 GM/DL (13.0-17.0) Hematocrit 36.4 % (39.0-51.0) Chloride Level 109 MEQ/L (98-107) Blood Urea Nitrogen 6 MG/DL (7-18) Calcium Level 8.2 MG/DL (8.5-10.1) Phosphorus Level 2.3 MG/DL (2.5-4.9) Imaging Last Impressions Chest X-Ray 12/01/162110 Signed Impressions: Service Date/Time: Thursday, December 01, 2016 21:26 - CONCLUSION: 1. Minimal basilar atelectasis. No dense consolidation or effusion. Chris Friedman MD PE at Discharge VITAL SIGNS: Reviewed GENERAL: This was a 76 year-old male lying on bed in no acute distress. HEENT: No jaundice. Moist mucous membranes. NECK: Supple. CARDIOVASCULAR: Regular rate and rhythm. RESPIRATORY: coarse breath sounds are heard bilaterally. GASTROINTESTINAL: Bowel sounds are present. ABDOMEN: Not distended. There is no guarding or rebound. GENITOURINARY: Bladder does not appear to be distended. No CVA tenderness. MUSCULOSKELETAL: No edema. LOWER EXTREMITIES: Appear to be contracted. NEUROLOGIC: The patient does respond to moderate tactile stimulus with some withdrawing, otherwise neuro exam is essentially unobtainable. Hospital Course This is the assessment and initial diagnosis use for the plan of care to treat patient. 1. Sepsis on admission. 2. Urinary tract infection. 3. Protein calorie malnutrition. 4. Dementia. 5. Cerebral palsy. 6. Underlying dementia. 7. Hard of hearing. Admission for observation When necessary oxygen to keep oxygen saturation above 90% Labs reviewed, and treated according to any abnormals which included a low potassium level. K was given and rechecked in a.m. Low potassium better next morning Stable H&H, intended to monitor Low phosphorous better, intended to monitor Improving WBC better, after antibiotics and first 24 hours Lactic acid within normal limits antibiotic azithromycin and Ancef IV, Continue home medication as indicated DVT and GI prophylaxis. Repeat labs which were all trending towards normal Physical therapy for strengthening and mobility eval. Plan for DC today based on stable labs and plan of care Discussed with rn case manager hospice about DC planning, discharged to SNF Discussed with RN Pt Condition on Discharge: Fair Discharge Disposition: Discharge to SNF Discharge Instructions DIET: Follow Instructions for: Heart Healthy Diet Activities you can perform: Weight Bearing as Rafi Follow up Referrals: PCP Follow-up - 1 Week New Medications: Cefuroxime (Ceftin) 500 Mg Tab 500 MG PO BID Infection #14 Ref 0 TAB Doxycycline Hyclate (Doxycycline Hyclate) 100 Mg Cap 100 MG PO BID Infection #14 Ref 0 CAP Continued Medications: Acetaminophen (Tylenol) 325 Mg Cap 650 MG PO Q4HR PRN PAIN SCALE 1 TO 10 Ref 0 CAP Albuterol Neb (Albuterol Neb) 2.5 Mg/0.5 Ml Neb 2.5 MG NEB Q6HR NEB Note: The Albuterol Sulfate Inhalation Solution is concentrated and must be diluted. Read complete instructions carefully before using. PRN WHEEZING BOX Bisacodyl Supp (Biscolax Supp) 10 Mg Supp 10 MG RECTAL DAILY PRN CONSTIPATION Ref 0 SUPP Donepezil (Donepezil) 10 Mg Tab 10 MG PO HS Dementia #30 Ref 0 TAB Gabapentin (Gabapentin) 100 Mg Cap 100 MG PO BID #60 Ref 0 CAP Omeprazole (Prilosec) 20 Mg Cap 20 MG PO DAILY #30 Ref 0 CAP Risperidone (Risperdal) 0.5 Mg Tab 0.5 MG PO Q12HR #60 Ref 0 TAB Trazodone (Trazodone) 50 Mg Tab 50 MG PO HS Control Depression #30 Ref 0 TAB Ladonna Peres Dec 04, 2016 18:16
[2016-12-04] MEDS: DONEPEZIL HCL 5 MG TAB PO SCH (21:00)
[2016-12-04] MEDS: traZODone HCL 50 MG TAB PO SCH (21:00)
[2016-12-05] VITALS: BP 117/64; PULSE 66; RESP 18; TEMP 96.9; O2SAT 92
[2016-12-05] MEDS: FAMOTIDINE 20 MG/2 ML VIAL IV PUSH SCH ×2 (01:00→12:38)
[2016-12-05] MEDS: SODIUM CHLOR 0.9% 1000 ML INJ 1,000 ML IV SCH (02:26)
[2016-12-05 04:00] VITALS: BP 110/56; PULSE 74; RESP 18; TEMP 96.9; O2SAT 92
[2016-12-05 07:18] VITALS: BP 125/85; PULSE 82; RESP 20; TEMP 96.5; O2SAT 93
[2016-12-05] MEDS: CEFEPIME INJ 1,000 MG in SODIUM CHLORIDE 0.9% INJ 100 ML IV SCH ×2 (07:29→14:11)
[2016-12-05] MEDS: HEPARIN SODIUM - SQ 10,000 UNITS/ML VIAL SQ SCH (08:47)
[2016-12-05 11:50] VITALS: BP 135/77; PULSE 83; RESP 20; TEMP 96.8; O2SAT 96
[2016-12-05] MEDS: risperiDONE 0.5 MG TAB PO SCH (12:33)
[2016-12-05] MEDS: PANTOPRAZOLE SOD 20 MG DELAYED RELEASE TAB PO SCH (12:33)
[2016-12-05] MEDS: GABAPENTIN 100 MG CAP PO SCH (12:34)
[2016-12-05] MEDS: SODIUM CHLORIDE 0.9% FLUSH 5 ML FLUSH FLUSH SCH (12:38)
--- NOTE | 2016-12-05 14:24 | HHI.PR ---
Subjective Remarks Patient is alert pleasant occasionally following commands Try to utter one to 2 words very difficult to understand Not in any apparent distress As per RN had a bowel movement yesterday Had some agitation last night Unable to get review of system Objective Objective Results - Vital Signs Date Time Temp Pulse Resp B/P Pulse Ox O2 Delivery O2 Flow Rate FiO2 12/05/16 07:18 96.5 82 20 125/85 93 12/05/16 04:00 96.9 74 18 110/56 92 12/05/16 00:00 96.9 66 18 117/64 92 12/04/16 20:00 97.9 66 17 114/44 92 12/04/16 17:53 95 21 12/04/16 17:00 67 107/47 12/04/16 16:30 93 20 139/84 I/O 12/04/16 12/04/16 12/04/16 12/05/16 12/05/16 12/05/16 07:00 15:00 23:00 07:00 15:00 23:00 Intake Total 240 ml 2857 ml 150 ml Balance 240 ml 2857 ml 150 ml Intake Oral 240 ml 150 ml IV Total 2857 ml # Voids 4 1 5 # Bowel Movements 2 Result Diagram: 12/04/16 0558 12/04/16 0558 Other Results Date/Time Procedure Status Source Growth 12/01/16 21:50 Influenza Types A,B Antigen ([facility]) - Final Complete Nasal Washing NEGATIVE FOR FLU A AND B ANTIGEN.... 12/01/16 21:30 Aerobic Blood Culture - Preliminary Resulted Blood Peripheral NO GROWTH IN 4 DAYS 12/01/16 21:30 Anaerobic Blood Culture - Final Resulted Blood Peripheral QNS - SEE AEROBE REPORT Physical Exam Physical Exam VITAL SIGNS: Reviewed GENERAL: This is a 76 year-old male lying on bed in no acute distress. HEENT: No jaundice. Moist mucous membranes. NECK: Supple. CARDIOVASCULAR: Regular rate and rhythm. RESPIRATORY: coarse breath sounds are heard bilaterally. GASTROINTESTINAL: Bowel sounds are present. ABDOMEN: Not distended. There is no guarding or rebound. GENITOURINARY: Bladder does not appear to be distended. No CVA tenderness. MUSCULOSKELETAL: No edema. LOWER EXTREMITIES: Appear to be contracted. NEUROLOGIC: The patient does respond to moderate tactile stimulus with some withdrawing, otherwise neuro exam is essentially unobtainable. A/P Assessment and Plan 1. Sepsis on admission. 2. Urinary tract infection. 3. Protein calorie malnutrition. 4. Dementia. 5. Cerebral palsy. 6. Underlying dementia. 7. Hard of hearing. DISCUSSION: Labs reviewed Low potassium better Stable H&H Low phosphorous better Improving WBC better Lactic acid within normal limits antibiotic Continue home medication as indicated DVT and GI prophylaxis. Physical therapy Plan for DC today Discussed with case management assistant about DC planning Discussed with MELA nieto fully dc today dw sister at bedside Andreas Rinaldi MD Dec 05, 2016 14:24
[2016-12-05 15:50] VITALS: BP 146/67; PULSE 85; RESP 20; TEMP 98.1; O2SAT 94
== END 2016-12-05 19:07 | DRG 872 ==
LOC: NEPC 21:05 → NEDA 12-02 00:50 → HOCB 12-02 02:26
PROVIDERS: ADMIT Specialist; ATTEND Specialist
DX: A41.9 Sepsis, unspecified organism (principal); E46 Unspecified protein-calorie malnutrition; G30.9 Alzheimer's disease, unspecified; F02.80 Dementia in other diseases classified elsewhere, unspecified severity, without behavioral disturbance, psychotic disturbance, mood disturbance, and anxiety; N30.00 Acute cystitis without hematuria; G80.9 Cerebral palsy, unspecified; H91.90 Unspecified hearing loss, unspecified ear; K21.9 Gastro-esophageal reflux disease without esophagitis
CPT/HCPCS: 71010; 80048; 80053; 81001; 83605; 83735; 84100; 84484; 85025; 85027; 85610; 85730; 87040; 87077; 87186; 87205; 87804; 93005; 96365; 96366; 96375; J0456; J0692; J1644; J7030; J7050; P9612